=== PATIENT | male | born 2000 | race Caucasian/White ===

== ENCOUNTER 2019-07-09 11:55 | Emergency (ER) | payer OTHER ==
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
== END 2019-07-09 13:00 | disposition home or self-care (01) ==
LOC: LB.ED 11:55 → MERGE 11:55 → LB.ED 13:00
DX: T14.8XXA Other injury of unspecified body region, initial encounter (principal); V67.5XXA Driver of heavy transport vehicle injured in collision with fixed or stationary object in traffic accident, initial encounter; Y92.411 Interstate highway as the place of occurrence of the external cause
CPT/HCPCS: 70450; 72125; 99284-25